=== PATIENT | male | born 1950 | race Caucasian/White ===

== ENCOUNTER 2024-09-28 16:47 | Inpatient (IN) | payer MEDICARE, MEDICAID ==
[~2024-09-28] VITALS: Ht 180.3 cm; Wt 77.6 kg
[2024-09-28 19:30] LABS: GLUCOMETER DEV NAME(LOC) POC.BV; POC SARS-COV2 AG, FIA NEGATIVE (NEGATIVE)
[2024-09-28] MEDS: ZOLPIDEM TARTRATE 10 MG TABLET PO PRN (21:24)
[2024-09-28 22:33] VITALS: BP 137/72; PULSE 67; RESP 18; TEMP 99; O2SAT 99
[2024-09-28 22:34] VITALS: BP 137/72; PULSE 67; RESP 18; TEMP 99; O2SAT 99
[2024-09-28] MEDS: PNEUMOCOCCAL VACCINE POLYVALENT 0.5 ML SYRINGE [PPSV23] IM. ONE (23:30)
[2024-09-29 08:13] LABS: PLATELET COUNT (AUTO) 165 K/uL (150-450); RED BLOOD CELL COUNT(AUTO) 4.90 MIL/uL (4.50-5.90); RED CELL DISTRIBUTION WIDTH 15.0 % (11.5-14.5); WHITE BLOOD COUNT (AUTO) 5.1 K/uL (4.5-11.0)
[2024-09-29 08:27] LABS: ALCOHOL, BLOOD (SERUM) < 3 mg/dL (0-10)
[2024-09-29 08:30] VITALS: BP 179/91; PULSE 98; RESP 18; TEMP 98.3; O2SAT 99
[2024-09-29 08:31] LABS: ASPARTATE AMINOTRANSFERASE 17 U/L (15-37); CALCIUM, TOTAL 9.1 mg/dL (8.8-10.5); CHOL/HDL RATIO 2.8 (4.2-7.3); CREATININE 0.84 mg/dL (0.60-1.30); GLOMERULAR FILTR. RATE CALC > 60 mL/min (>60); GLUCOSE,RANDOM 95 mg/dL (70-110); LDL CHOL (CALC.) 79 mg/dL (0-130); SODIUM SERUM 145 mmol/L (136-145); TOTAL PROTEIN, SERUM 6.6 g/dL (6.4-8.2); UREA NITROGEN, BLOOD 15 mg/dL (7-18)
[2024-09-29 09:58] VITALS: BP 140/60; PULSE 69; RESP 18; TEMP 98; O2SAT 98
[2024-09-29 20:08] VITALS: BP 159/74; PULSE 69; RESP 19; TEMP 97.8; O2SAT 100
[2024-09-29] MEDS ORDERED: MAG HYDROX/ALUMINUM HYD/SIMETH ES 30 ML SUSPENSION UDCUP PO PRN (22:45)
[2024-09-29] MEDS ORDERED: MAGNESIUM HYDROXIDE SUSPENSION 30 ML UDCUP PO PRN (22:45)
[2024-09-29] MEDS ORDERED: GuaiFENesin/D-METHORPHAN [SUGAR-FREE] 200-20MG/10 ML SYRUP UDCUP PO PRN (22:45)
[2024-09-29] MEDS ORDERED: PROMETHAZINE HCL 25 MG TABLET PO PRN (22:45)
[2024-09-30] MEDS: FOLIC ACID 1 MG TABLET PO SCH (08:04)
[2024-09-30] MEDS: NALTREXONE HCL 50 MG TABLET PO SCH (08:04)
[2024-09-30] MEDS: THIAMINE 100 MG TABLET PO SCH (08:04)
[2024-09-30] MEDS: MULTIVITAMINS WITH MINERALS, THERAPEUTIC TABLET PO SCH (08:04)
[2024-09-30 08:55] LABS: PLATELET COUNT (AUTO) 168 K/uL (150-450); RED BLOOD CELL COUNT(AUTO) 4.93 MIL/uL (4.50-5.90); RED CELL DISTRIBUTION WIDTH 15.0 % (11.5-14.5); WHITE BLOOD COUNT (AUTO) 5.7 K/uL (4.5-11.0)
[2024-09-30 09:07] LABS: HEPATITIS C AB (EIA) Non Reactive (Non Reactive)
[2024-09-30 09:26] LABS: APPEARANCE,URINE CLEAR (CLEAR); GLUCOSE, URINE (UA) NEGATIVE (NEGATIVE); LEUKOCYTE ESTERASE ,URINE NEGATIVE (NEGATIVE); NITRATE,URINE NEGATIVE (NEGATIVE); OCCULT BLOOD,URINE NEGATIVE (NEGATIVE); PH,URINE DRUG SCREEN 7.0 (5.0-8.0); SPECIFIC GRAVITIY, URINE 1.025 (1.003-1.030)
[2024-09-30 09:32] LABS: ALCOHOL, URINE DRUG SCREEN NEGATIVE (NEGATIVE); AMPHET/METH SCREEN,URINE NEGATIVE (NEGATIVE); BARBITURATE SCREEN, URINE NEGATIVE (NEGATIVE); CANNABINOID SCREEN,URINE POSITIVE (NEGATIVE); COCAINE SCREEN,URINE NEGATIVE (NEGATIVE); METHADONE SCREEN, URINE NEGATIVE (NEGATIVE)
[2024-09-30 09:41] LABS: ASPARTATE AMINOTRANSFERASE 16 U/L (15-37); CALCIUM, TOTAL 9.2 mg/dL (8.8-10.5); CHOL/HDL RATIO 3.0 (4.2-7.3); CREATININE 0.92 mg/dL (0.60-1.30); GLOMERULAR FILTR. RATE CALC > 60 mL/min (>60); GLUCOSE,RANDOM 94 mg/dL (70-110); LDL CHOL (CALC.) 80 mg/dL (0-130); SODIUM SERUM 144 mmol/L (136-145); TOTAL PROTEIN, SERUM 6.6 g/dL (6.4-8.2); UREA NITROGEN, BLOOD 17 mg/dL (7-18)
[2024-09-30 09:57] VITALS: BP 158/71; PULSE 65; RESP 16; TEMP 97.5; O2SAT 99
[2024-09-30] MEDS: MELATONIN 5 MG TABLET PO SCH (20:07)
[2024-09-30 20:26] VITALS: BP 159/75; PULSE 64; RESP 18; TEMP 97.5; O2SAT 98
[2024-10-01 08:42] VITALS: BP 157/67; PULSE 63; RESP 16; TEMP 97.2; O2SAT 98
[2024-10-01 17:08] VITALS: BP 164/84; PULSE 70; RESP 16; TEMP 97.3; O2SAT 99
[2024-10-01 20:15] VITALS: RESP 17
[2024-10-02 08:11] VITALS: BP 160/70; PULSE 72; RESP 18; TEMP 98; O2SAT 100
[2024-10-02 16:26] VITALS: BP 142/76; PULSE 68; RESP 18; O2SAT 96
[2024-10-02 20:13] VITALS: BP 140/90; PULSE 66; RESP 18; TEMP 97.7; O2SAT 99
[2024-10-03 09:28] LABS: PH,URINE DRUG SCREEN 6.0 (5.0-8.0)
[2024-10-03 09:37] LABS: ALCOHOL, URINE DRUG SCREEN NEGATIVE (NEGATIVE); AMPHET/METH SCREEN,URINE NEGATIVE (NEGATIVE); BARBITURATE SCREEN, URINE NEGATIVE (NEGATIVE); CANNABINOID SCREEN,URINE POSITIVE (NEGATIVE); COCAINE SCREEN,URINE NEGATIVE (NEGATIVE); METHADONE SCREEN, URINE NEGATIVE (NEGATIVE)
[2024-10-03 10:57] VITALS: BP 132/73; PULSE 65; RESP 18; TEMP 98.4; O2SAT 98
[2024-10-03 16:33] VITALS: BP 151/71; PULSE 67; RESP 18
[2024-10-03 20:17] VITALS: BP 136/65; PULSE 69; RESP 18; TEMP 98; O2SAT 96
[2024-10-04 08:22] VITALS: BP 139/84; PULSE 69; RESP 17; TEMP 98; O2SAT 99
[2024-10-04] MEDS: TUBERCULIN, PURIFIED PROTEIN DERIVATIVE 5 TU/0.1 ML SYRINGE ID ONE (15:45)
[2024-10-04 16:27] VITALS: BP 120/64; PULSE 68; RESP 18; TEMP 98.2; O2SAT 98
[2024-10-04 20:11] VITALS: BP 147/67; PULSE 73; RESP 18; TEMP 97.5; O2SAT 98
[2024-10-05 08:28] VITALS: BP 149/62; PULSE 62; RESP 17; TEMP 98.4; O2SAT 98
[2024-10-05 10:05] VITALS: BP 133/67
[2024-10-05 20:06] VITALS: BP 162/76; PULSE 70; RESP 19; TEMP 97.8; O2SAT 100
[2024-10-05] MEDS: DIVALPROEX SODIUM 500 MG ER TABLET PO SCH (21:31)
[2024-10-06 08:21] VITALS: BP 142/77; PULSE 63; RESP 17; TEMP 98.3; O2SAT 98
[2024-10-06 16:35] VITALS: BP 139/85; PULSE 73; RESP 17; TEMP 97.9; O2SAT 98
[2024-10-06 20:34] VITALS: BP 136/75; PULSE 64; RESP 17; TEMP 99; O2SAT 98
[2024-10-07 08:31] VITALS: BP 148/63; PULSE 62; RESP 18; TEMP 97.8; O2SAT 100
[2024-10-07 20:27] VITALS: BP 140/82; PULSE 70; RESP 18; TEMP 97.3; O2SAT 98
[2024-10-08 08:11] VITALS: BP 138/70; PULSE 70; RESP 18; TEMP 97.5; O2SAT 100
[2024-10-08 20:15] VITALS: BP 127/78; PULSE 61; RESP 18; TEMP 98.1; O2SAT 99
[2024-10-09 08:33] VITALS: BP 159/69; PULSE 63; RESP 17; TEMP 98.7; O2SAT 99
[2024-10-09 20:06] VITALS: BP 154/65; PULSE 68; RESP 18; TEMP 98.1; O2SAT 96
[2024-10-10 08:28] VITALS: BP 148/75; PULSE 68; RESP 16; TEMP 97.7; O2SAT 98
[2024-10-10 20:08] VITALS: BP 136/61; PULSE 65; RESP 18; TEMP 98; O2SAT 100
[2024-10-11 08:15] VITALS: BP 167/62; PULSE 63; RESP 16; TEMP 97.5; O2SAT 98
[2024-10-11 16:33] VITALS: BP 156/86; PULSE 62; RESP 18
[2024-10-11 20:07] VITALS: BP 141/89; PULSE 66; RESP 19; TEMP 97.8; O2SAT 99
[2024-10-12 08:19] VITALS: BP 157/72; PULSE 70; RESP 17; TEMP 97.5; O2SAT 100
[2024-10-12] MEDS ORDERED: MELA5TAB40 PO (14:59)
[2024-10-12] MEDS ORDERED: NALT50TA33 PO (14:59)
[2024-10-12] MEDS ORDERED: DIVA-153 PO (14:59)
[2024-10-12] MEDS ORDERED: OLAN10TA74 PO (14:59)
[2024-10-12 16:28] VITALS: BP 161/82; PULSE 63; RESP 18
[2024-10-12 20:27] VITALS: BP 138/80; PULSE 65; RESP 17; TEMP 97.8; O2SAT 100
[2024-10-12] MEDS: ACETAMINOPHEN 325 MG TABLET PO PRN (23:39)
[2024-10-13 01:04] VITALS: RESP 18
[2024-10-13 10:32] VITALS: BP 118/65; PULSE 68; RESP 16; TEMP 97.8; O2SAT 99
[2024-10-13] MEDS ORDERED: LISI-893 PO (10:57)
== END 2024-10-13 11:53 | disposition home or self-care (01) | DRG 885 ==
LOC: B2S 17:30 → UNDOADMIN 17:30 → B2S 18:16
PROVIDERS: ADMIT Psychiatry & Neurology Psychiatry; ATTEND Psychiatry & Neurology Psychiatry
PROC: GZHZZZZ Group Psychotherapy (ICD-10-PCS; principal; 2024-09-28)
PROC: GZ58ZZZ Individual Psychotherapy, Cognitive-Behavioral (ICD-10-PCS; 2024-09-28)
PROC: GZ56ZZZ Individual Psychotherapy, Supportive (ICD-10-PCS; 2024-09-28)
DX: F31.9 Bipolar disorder, unspecified (principal); Z59.00 Homelessness unspecified; F20.0 Paranoid schizophrenia; F17.200 Nicotine dependence, unspecified, uncomplicated; I10 Essential (primary) hypertension; Z20.822 Contact with and (suspected) exposure to COVID-19; J44.9 Chronic obstructive pulmonary disease, unspecified; Z55.9 Problems related to education and literacy, unspecified; Z63.9 Problem related to primary support group, unspecified; Z65.3 Problems related to other legal circumstances
CPT/HCPCS: 80053; 80061; 80164; 80307; 81003; 83036; 84436; 84439; 84443; 85025; 86592; 86803; 87340; G0480